=== PATIENT | female | born 1930 | race Caucasian/White ===

== ENCOUNTER 2017-03-13 06:24 | Observation (INO) | payer OTHER ==
[~2017-03-13] VITALS: Ht 162.6 cm; Wt 76.8 kg
[2017-03-13] MEDS ORDERED: NORVASC5 MG PO (07:26)
[2017-03-13] MEDS ORDERED: LASIX40 MG PO (07:26)
[2017-03-13] MEDS ORDERED: TIROSINT75 MCG PO (07:27)
[2017-03-13] MEDS ORDERED: COUMADIN2.5 MG PO (07:29)
[2017-03-13] MEDS ORDERED: KEPPRA500 MG PO (07:30)
[2017-03-13] MEDS ORDERED: TYLENOL REGULA325 MG PO (07:30)
[2017-03-13] MEDS ORDERED: TRAVATAN Z5 ML BOTH EYES (07:31)
[2017-03-13 10:38] LABS: BASOPHIL (%) 0.3 % (0-1); EOSINOPHIL (%) 0.4 % (0-5); HEMATOCRIT 39.8 % (36.0-46.0); HEMOGLOBIN 13.7 G/DL (11.9-15.5); IMMATURE GRANULOCYTE (%) 0.5 % (0.0-0.7); LYMPHOCYTE (%) 19.3 % (15-42); LYMPHOCYTE COUNT 1.8 K/uL (1.0-2.8); MCH 32.4 PG (29.0-34.0); MCHC 34.4 G/DL (30.0-36.0); MCV 94.1 FL (83-99); MONOCYTE (%) 5.7 % (3-12); MONOCYTE COUNT 0.5 K/uL (0-0.8); NEUTROPHIL (%) 73.8 % (45-76); PLATELET COUNT 237 K/uL (156-360); RBC DIS.WIDTH-CV 12.5 % (11.8-14.6); RED BLOOD COUNT 4.23 M/uL (3.80-5.20); WHITE BLOOD COUNT 9.5 K/uL (4.1-10.2)
[2017-03-13 10:42] LABS: INTER. NORMALIZED RATIO 2.1
[2017-03-13 10:52] LABS: ALBUMIN 3.9 g/dL (3.2-4.8)
[2017-03-13 10:53] LABS: CHLORIDE 104 mEq/L (99-109); POTASSIUM 4.4 mEq/L (3.7-5.4); SODIUM 140 mEq/L (136-147)
[2017-03-13 10:55] LABS: GLUCOSE 119 mg/dL (70-99); TOTAL PROTEIN 7.3 g/dL (6.4-8.3)
[2017-03-13 10:57] LABS: TOTAL BILIRUBIN 0.5 mg/dL (0.0-1.0)
[2017-03-13 10:58] LABS: ALKALINE PHOSPHATASE 107 IU/L (3-129)
[2017-03-13 10:59] LABS: CREATININE 1.1 mg/dL (0.6-1.3); GFR ESTIMATE (CALCULATED) 50 mL/min/; TROP-I INTERPRETATION NEGATIVE; TROPONIN-I 0.03 ng/mL (0.0-0.30)
[2017-03-13 11:00] LABS: AST (GOT) 28 IU/L (2-34); UREA NITROGEN (BUN) 20 mg/dL (9-23)
[2017-03-13 11:02] LABS: ALT (GPT) 18 IU/L (3-49)
[2017-03-13] MEDS ORDERED: CITRUCEL500 MG PO (13:00)
[2017-03-13] MEDS ORDERED: TAB-A-VITE1 EACH PO (13:01)
[2017-03-13] MEDS ORDERED: WARFARIN SODIU2.5 MG PO (13:03)
[2017-03-13 16:50] VITALS: BP 218/89
[2017-03-13 18:24] LABS: TROP-I INTERPRETATION NEGATIVE; TROPONIN-I 0.03 ng/mL (0.0-0.30)
[2017-03-13 18:38] VITALS: BP 180/79
[2017-03-13 19:00] VITALS: BP 176/76
[2017-03-13 23:06] VITALS: BP 167/86
[2017-03-14 02:27] LABS: TROP-I INTERPRETATION NEGATIVE; TROPONIN-I 0.02 ng/mL (0.0-0.30)
[2017-03-14 03:09] VITALS: BP 168/69
[2017-03-14 05:35] LABS: HEMOGLOBIN 12.4 G/DL (11.9-15.5); MCH 32.3 PG (29.0-34.0); MCHC 34.4 G/DL (30.0-36.0); MCV 93.8 FL (83-99); PLATELET COUNT 212 K/uL (156-360); RBC DIS.WIDTH-CV 12.7 % (11.8-14.6); RBC DIS.WIDTH-SD 43.4 % (39-53); RED BLOOD COUNT 3.84 M/uL (3.80-5.20); WHITE BLOOD COUNT 9.1 K/uL (4.1-10.2)
[2017-03-14 05:38] LABS: INTER. NORMALIZED RATIO 1.8
[2017-03-14 05:58] LABS: ALBUMIN 3.6 G/DL (3.2-4.8); ALKALINE PHOSPHATASE 92 IU/L (3-129); ALT (GPT) 11 IU/L (3-49); AST (GOT) 19 IU/L (2-34); CHLORIDE 107 MEQ/L (99-109); CREATININE 0.8 MG/DL (0.6-1.3); GFR ESTIMATE (CALCULATED) > 59 mL/min/; GLUCOSE 100 mg/dL (70-99); POTASSIUM 3.8 MEQ/L (3.7-5.4); SODIUM 141 MEQ/L (136-147); TOTAL BILIRUBIN 0.8 MG/DL (0.0-1.0); TOTAL PROTEIN 6.4 G/DL (6.4-8.3); UREA NITROGEN (BUN) 17 mg/dL (9-23)
[2017-03-14 09:15] VITALS: BP 170/70
[2017-03-14 11:23] VITALS: BP 187/74
[2017-03-14 15:58] VITALS: BP 149/58
[2017-03-14] MEDS ORDERED: LEVETIRACETAM750 MG PO (16:05)
[2017-03-14] MEDS ORDERED: TYLENOL REGULA325 MG PO (16:05)
== END 2017-03-14 18:22 ==
LOC: EME 06:24 → 5WEST 13:47 → EDOF 13:47 → ENRESERV 13:47 → EDOF 14:17 → 5WEST 15:11 → ENPENDDIS 03-14 16:12 → 5WEST 03-14 18:22
PROVIDERS: Emergency Medicine; Hospitalist
PROC: 2W3RX1Z Immobilization of Left Lower Leg using Splint (ICD-10-PCS; principal; 2017-03-13)
DX: R42 Dizziness and giddiness (principal); W19.XXXA Unspecified fall, initial encounter; Z91.81 History of falling; I69.354 Hemiplegia and hemiparesis following cerebral infarction affecting left non-dominant side; I69.392 Facial weakness following cerebral infarction; I48.91 Unspecified atrial fibrillation; Z98.890 Other specified postprocedural states; Z95.0 Presence of cardiac pacemaker; I69.319 Unspecified symptoms and signs involving cognitive functions following cerebral infarction; F01.50 Vascular dementia, unspecified severity, without behavioral disturbance, psychotic disturbance, mood disturbance, and anxiety; Z79.01 Long term (current) use of anticoagulants; I13.0 Hypertensive heart and chronic kidney disease with heart failure and stage 1 through stage 4 chronic kidney disease, or unspecified chronic kidney disease; I50.32 Chronic diastolic (congestive) heart failure; N18.3 Chronic kidney disease, stage 3 (moderate); Z86.19 Personal history of other infectious and parasitic diseases; E87.2 Acidosis; G40.909 Epilepsy, unspecified, not intractable, without status epilepticus; S93.402A Sprain of unspecified ligament of left ankle, initial encounter; Z66 Do not resuscitate
CPT/HCPCS: 70450; 71010; 73564; 73610; 80053; 81003; 82948; 84484; 85025; 85027; 85379; 85610; 93005; 99281; 99285; G0378; G8978 GP CJ; G8979 GP CI; G8980 CJ; G8987 CK; G8988 GO CJ; G8989 GO CK